=== PATIENT | female | born 1950 | race Caucasian/White ===

== ENCOUNTER 2017-03-06 07:14 | Emergency (ER) | payer BC ==
[~2017-03-06 07:14] MED LIST: ACYCLOVIR PO; ALPRAZOLAM PO; ANTIBIOTIC FOR UTI PO; ANUSOL SUPP1 SUPP PR; BACITRACIN30 GM TOP; BLOOD PRESSURE MED; CHOLESTEROL MED; CIPRO PO; DELTASONE20 MG PO; DOCU SOFT100 M1 PO; DOXYCYCLINE PO; HYDROCODON-ACE1 EAC7 PO; IMODIUM A-D2 M1 PO; KEFLEX PO; KLONOPIN0.5 MG PO; PERCOCET5/325 PO; PREDNISONE PO; PROCTOFOAM-HC F10 GM PR; PROTONIX PO; PROZAC; PROZAC PO; SINGULAIR PO; ULTRAM PO; VICODIN 5/1 TAB 5/50 PO; VIT B-12 PO; VITAMIN D; VOLTAREN75 MG PO; XANAX0.5 MG PO; ZITHROMAX PO
[2017-03-06 07:16] LABS: URINE SOURCE CLEAN CATCH
[2017-03-06 07:18] LABS: URINE APPEARANCE CLEAR; URINE BILIRUBIN NEG (NEG); URINE BLOOD NEG (NEG); URINE COLOR YELLOW; URINE GLUCOSE NEG (NORM); URINE KETONE NEG (NEG); URINE LEUKOCYTE ESTERASE TRACE (NEG); URINE NITRATE NEG (NEG); URINE PROTEIN NEG (NEG); URINE UROBILINOGEN 0.2 MG/DL (NORM)
[2017-03-06 07:19] LABS: MICRO INDICATED? YES
[2017-03-06 07:42] LABS: BASOPHIL% 0.4 % (0-2.5); EOSINOPHIL# 0.1 X10e3 (0-0.7); EOSINOPHIL% 1.8 % (0.0-7.0); HEMATOCRIT 41.6 % (35.0-45.0); HEMOGLOBIN 14.2 gm/dL (12.0-16.0); LYMPHOCYTE# 1.9 X10e3 (1.0-3.5); LYMPHOCYTE% 31.2 % (17.0-45.0); MEAN CELL VOLUME 89.5 FL (83-96); MEAN CORPUSCULAR HEMOGLOBIN 30.6 PG (28-34); MEAN CORPUSCULAR HGB CONC 34.2 g/dL (30-36); MEAN PLATELET VOLUME 8.1 FL (6.5-11.5); MONOCYTE# 0.4 X10e3 (0-1.0); NEUTROPHIL# 3.7 X10e3 (1.5-7.1); NEUTROPHIL% 60.6 % (40-75); PLATELET COUNT 195 X10e3 (140-420); RED BLOOD COUNT 4.65 X10e (3.90-5.30); RED CELL DISTRIBUTION WIDTH 12.7 % (11.0-15.5); WHITE BLOOD COUNT 6.1 X10e3 (4.0-10.5)
[2017-03-06 07:44] LABS: CULTURE INDICATED? NO; URINE BACTERIA NEG (NEG); URINE RBC 0-2 /[HPF] (0-2); URINE WBC 0-2 /[HPF] (0-5)
[2017-03-06 07:46] LABS: DIFF IND NO
[2017-03-06 07:50] LABS: INFLUENZA A NEG (NEG); INFLUENZA B NEG (NEG)
[2017-03-06 07:59] LABS: BILIRUBIN, DIRECT 0.1 mg/dL (0.0-0.2); BILIRUBIN,INDIRECT 0.5 mg/dL (0.0-0.9); BILIRUBIN,TOTAL 0.6 mg/dL (0.2-2.0); BUN/CREATININE RATIO 13.84; CALCIUM SERUM 9.4 mg/dL (8.4-10.2); CREATININE SERUM 1.3 mg/dL (0.6-1.4); GLOM FILT RATE Estimated 42.1 mL/min (>60); POTASSIUM 3.1 mmol/L (3.5-5.1); PROTEIN TOTAL SERUM 7.7 g/dL (6.0-8.3)
== END 2017-03-06 08:22 | disposition home or self-care (01) ==
LOC: SED 07:14
PROVIDERS: Emergency Medicine
DX: B34.9 Viral infection, unspecified (principal); F41.9 Anxiety disorder, unspecified; Z88.0 Allergy status to penicillin; Z79.899 Other long term (current) drug therapy
CPT/HCPCS: 36415; 80048; 80076; 81003; 83690; 85025; 87804; 96361; 96374; 99284; J1885